=== PATIENT | female | born 1975 ===

== ENCOUNTER 2018-03-20 20:39 | Emergency (ER) | payer SELFPAY ==
--- NOTE | 2018-03-20 21:09 | C.PDOC ---
History Of Present Illness 43-year-old female presents to the ED for evaluation of anxiety. Patient notes symptoms began after she was involved in an argument with her boyfriend earlier today. Patient presents to the ED hyperventilating. She denies chest pain, suicidal/homicidal ideation. Time Seen by Provider: 03/20/18 21:06 Chief Complaint (Nursing): Anxiety History Per: Patient History/Exam Limitations: no limitations Onset/Duration Of Symptoms: Hrs Current Symptoms Are (Timing): Still Present Suicide/Self Injury Attempted (Context): None Associated Symptoms: denies: Suicidal Thoughts, Suicidal Plan Additional History Per: Patient, EMS Past Medical History Reviewed: Historical Data, Nursing Documentation, Vital Signs Vital Signs: Last Vital Signs Temp 98.3 F 03/20/18 21:43 Pulse 84 03/20/18 21:43 Resp 20 03/20/18 21:43 BP 145/76 03/20/18 21:43 Pulse Ox 100 03/20/18 21:43 - Medical History PMH: Anxiety, Asthma Surgical History: No Surg Hx Family History: States: Unknown Family Hx - Social History Hx Alcohol Use: No Hx Substance Use: No - Immunization History Hx Tetanus Toxoid Vaccination: No Hx Influenza Vaccination: No Hx Pneumococcal Vaccination: No Review Of Systems Cardiovascular: Negative for: Chest Pain Psych: Positive for: Anxiety. Negative for: Suicidal ideation Physical Exam - Physical Exam Appears: Non-toxic, No Acute Distress, Other (maudlin ) Skin: Normal Color, Warm, Dry Head: Atraumatic, Normacephalic Eye(s): bilateral: Normal Inspection Nose: Other (nasal congestion s/p crying ) Oral Mucosa: Moist Neck: Supple Chest: Symmetrical, No Deformity, No Tenderness Cardiovascular: Rhythm Regular, No Murmur Respiratory: Normal Breath Sounds, No Rales, No Rhonchi, No Wheezing Extremity: Normal ROM, Capillary Refill (less than 2 seconds ) Neurological/Psych: Oriented x3, Normal Speech, Normal Cognition ED Course And Treatment O2 Sat by Pulse Oximetry: 99 (on RA) Pulse Ox Interpretation: Normal Progress Note: Patient rested for five minutes and was able to regain controlled breathing. Medical Decision Making Medical Decision Making: anxiety crying because boyfriend yelled at her no acute medical emergency Disposition Doctor Will See Patient In The: Office Counseled Patient/Family Regarding: Studies Performed, Diagnosis - Disposition Referrals: Alcoholics Anonymous [Outside] [facility] [Outside] [facility] [Outside] [facility] [Outside] [facility] [Outside] Disposition: HOME/ ROUTINE Disposition Time: 21:09 Condition: GOOD Instructions: Anxiety, Adult (DC) Forms: [employer] ([place]) Print Language: ROMANSH - Clinical Impression Clinical Impression: Anxiety - Scribe Statement The provider has reviewed the documentation as recorded by the Scribe (Sybil Melchor) Provider Attestation: All medical record entries made by the Scribe were at my direction and personally dictated by me. I have reviewed the chart and agree that the record accurately reflects my personal performance of the history, physical exam, medical decision making, and the department course for this patient. I have also personally directed, reviewed, and agree with the discharge instructions and disposition.
[2018-03-20 21:45] VITALS: BP 145/76; PULSE 84; RESP 20; TEMP 98.3
[2018-03-21 05:51] VITALS: O2SAT 99
== END 2018-03-20 21:43 | disposition home or self-care (01) ==
LOC: C.ER 20:39
DX: F41.9 Anxiety disorder, unspecified (principal)